=== PATIENT | male | born 1990 | race Caucasian/White ===

== ENCOUNTER → 2021-07-19 14:54 | Outpatient (CLI) | payer SELFPAY ==
--- NOTE | 2021-07-19 14:58 | ECHOD_ITS ---
Reason For Study: CHEST PAIN Procedure This was a 2D Doppler, Color Flow transthoracic echocardiogram. Exam performed in department. Left Ventricle Normal LV size. Left ventricular systolic function is normal. The estimated ejection fraction is 60 %. Normal diastology for age. No regional wall motion abnormalities noted. Right Ventricle Normal RV size. Normal systolic function. Atria Normal left atrium. Normal right atrium. Mitral Valve Normal mitral valve. Mild (1+) mitral valve insufficiency. Tricuspid Valve Normal tricuspid valve. Aortic Valve Normal aortic valve. Trisinus/trileaflet aortic valve. Pulmonic Valve Normal pulmonic valve. Great Vessels Normal aortic root. The pulmonary artery is normal size. Normal inferior vena cava. Pericardium/Pleural No pericardial effusion. MMode/2D Measurements & Calculations LVIDd: 4.1 cm IVSd: 0.93 cm Ao root diam: 3.5 cm LVIDs: 2.9 cm LVPWd: 0.80 cm RVDd: 4.2 cm FS: 28.4 % LAV(MOD-bp): 48.6 ml LA A4 area: 18.2 cm2 LA dimension(2D): 3.4 cm LAV(MOD-bp) Indexed: 24.6 ml/m2 LAV(MOD-sp2): 44.9 ml LAV(MOD-sp4): 50.3 ml RA A4 area: 15.5 cm2 Doppler Measurements & Calculations MV E max crispin: 64.3 cm/sec Lat Peak E' Crispin: 8.8 cm/sec Med Peak E' Crispin: 7.9 cm/sec MV A max crispin: 70.6 cm/sec E/E' lat: 7.3 E/E' med: 8.2 MV E/A: 0.91 Ao V2 max: 120.8 cm/sec LV V1 max: 125.0 cm/sec PA V2 max: 137.5 cm/sec Ao max P.8 mmHg LV V1 max P.3 mmHg PI end-d crispin: 110.9 cm/sec TR max crispin: 180.9 cm/sec TR max P.1 mmHg ECHO/Echo Complete Interpretation Summary Normal LV size. Left ventricular systolic function is normal. The estimated ejection fraction is 60 %. Normal diastology for age. Ordering Physician: Kuldeep Fulton Referring Physician: GISEL HOPSON Performed By: Norah Javed, SEGUN, RVT
== END ==
PROVIDERS: PCP Family Medicine; Referring Provider Internal Medicine Cardiovascular Disease; Visit Provider Internal Medicine Cardiovascular Disease
DX: R06.02 Shortness of breath (principal); R07.9 Chest pain, unspecified
CPT/HCPCS: 93306